=== PATIENT | male | born 1945 | race Caucasian/White ===

== ENCOUNTER 2020-09-18 06:51 | Day surgery (SDC) | payer MEDICARE, OTHER ==
[~2020-09-18] VITALS: Ht 177.8 cm; Wt 67.1 kg
[~2020-09-18 06:51] MED LIST: ATOR20TA50 PO; ISOS20TA49 PO; MAGN400T40 PO; METO25TA36 PO; RIVA15TA PO; TICA90TA PO; UMEC1AER IN; ZOLP10TA PO
[2020-09-18] MEDS ORDERED: HEPARIN SODIUM (PORCINE) 5000 UNITS/ML 1ML VIAL ONE (07:54)
[2020-09-18] MEDS ORDERED: ANGIOMAX 250 MG VIAL IV ONE (07:54)
[2020-09-18] MEDS ORDERED: fentaNYL CITRATE 100 MCG/2 ML VL ONE (07:54)
[2020-09-18] MEDS ORDERED: VERAPAMIL 2.5MG/ML INJ 2ML VIAL IV ONE (07:54)
[2020-09-18] MEDS ORDERED: SODIUM CHL 0.9% 50 ML ONE (07:55)
[2020-09-18] MEDS ORDERED: MIDAZOLAM HCL 1MG/1ML-2 ML VIAL ONE (07:55)
[2020-09-18] MEDS ORDERED: LIDOCAINE 2%HCL (LOCAL ANESTH.) INJ 20ML MDV ONE (07:55)
[2020-09-18] MEDS ORDERED: IOHEXOL 350 MG/ML 100ML IJ ONE ×2 (07:58→08:21)
[2020-09-18] MEDS ORDERED: TICAGRELOR 90 MG TAB ONE (08:54)
[2020-09-18] MEDS ORDERED: ASPirin 325 MG TAB ONE (08:55)
[2020-09-18] MEDS ORDERED: ONDANSETRON HCL 4 MG/2 ML VIAL IV PRN (09:15)
[2020-09-18] MEDS ORDERED: ACETAMINOPHEN 500 MG TAB PO PRN (09:15)
== END 2020-09-18 11:30 | disposition home or self-care (01) ==
LOC: CATH 06:51
PROVIDERS: ATTEND Internal Medicine Cardiovascular Disease
DX: I25.10 Atherosclerotic heart disease of native coronary artery without angina pectoris (principal); I10 Essential (primary) hypertension; E78.5 Hyperlipidemia, unspecified; J44.9 Chronic obstructive pulmonary disease, unspecified; F17.210 Nicotine dependence, cigarettes, uncomplicated; Z20.822 Contact with and (suspected) exposure to COVID-19; Z98.890 Other specified postprocedural states; Z79.899 Other long term (current) drug therapy; Z95.5 Presence of coronary angioplasty implant and graft
CPT/HCPCS: 93458; 93571; C1725; C1769; C1874; C1887; C1894; C9600; C9601; J0583; J1644; J2250; J3010; J7030; Q9967; U0003; 99152; 99153